=== PATIENT | female | born 1955 | race Caucasian/White ===

== ENCOUNTER 2016-08-13 18:51 | Emergency (ER) | payer BC ==
[~2016-08-13] VITALS: Ht 157.5 cm; Wt 78.0 kg
[2016-08-13] MEDS ORDERED: ONDANSETRON 2 MG/ML (Z0FRAN) 2 ML VIAL IV ONE ×2 (19:25→23:10)
[2016-08-13] MEDS ORDERED: SODIUM CHLORIDE FLUSH 10 ML SYR IV PRN (19:25)
[2016-08-13] MEDS ORDERED: SODIUM CHLORIDE FLUSH 3 ML SYR IV PRN (19:25)
[2016-08-13] MEDS ORDERED: HYDROmorphone 1 MG/ML (DILAUDID) SYRINGE IV PRN (19:25)
[2016-08-13 19:40] LABS: BASOPHILS % (AUTO) 0 % (0-2); EOSINOPHILS # (AUTO) 0.1 10^3uL; EOSINOPHILS % (AUTO) 2 % (0-4); MEAN CORPUSCULAR HEMOGLOBIN 29.7 PG (26.0-34.0); MEAN CORPUSCULAR HGB CONC 35.4 g/dL (31.0-37.0); MEAN CORPUSCULAR VOLUME 84 FL (80-100); MEAN PLATELET VOLUME 8.4 FL (6.0-9.5); MONOCYTES # (AUTO) 0.7 X10^3; MONOCYTES % (AUTO) 9 % (3-11); NEUTROPHILS # (AUTO) 5.1 X10^3; NEUTROPHILS % (AUTO) 64 % (51-67); PLATELET COUNT 333 10^3uL (150-450); WHITE BLOOD COUNT 7.95 10^3uL (4.0-11.0)
[2016-08-13 19:43] LABS: BILIRUBIN,URINE Negative (Negative); CLARITY,URINE Clear; COLOR,URINE Yellow; GLUCOSE, URINE (UA) Negative (Negative); LEUKOCYTE ESTERASE ,URINE Trace (Negative); UROBILINOGEN,URINE 0.2 mg/dL (0.2-1.0)
[2016-08-13 19:48] LABS: ALBUMIN 4.8 g/dL (3.4-5.0); CALCULATED IONIZED CALCIUM 4.1 mg/dL (3.8-4.6); TOTAL PROTEIN 8.2 g/dL (6.4-8.5)
--- NOTE | 2016-08-13 20:40 | NUR ---
Pt states that she feels bloated still but not really any pain at this time
[2016-08-13 21:06] LABS: RBC,URINE 0-2 /HPF; URINE CENTRIFUGED VOLUME 12 mL
[2016-08-13] MEDS ORDERED: ONDANSETRON 2 MG/ML (Z0FRAN) 2 ML VIAL ONE (23:08)
[2016-08-13 23:57] VITALS: BP 152/75
== END 2016-08-14 | disposition home or self-care (01) ==
LOC: ED 18:52
DX: A08.4 Viral intestinal infection, unspecified (principal)
CPT/HCPCS: 36415; 74177; 80053; 81003; 81015; 82150; 83690; 85025; 87088; 96361; 96374; 96375; 96376; 99285; J1170; J2405; J7030; Q9967; 99283

== ENCOUNTER 2016-10-06 07:09 | Emergency (ER) | payer BC ==
[~2016-10-06] VITALS: Ht 157.5 cm; Wt 80.0 kg
[2016-10-06] MEDS ORDERED: KETOROLAC 60 MG/2 ML (TORADOL) VIAL IM ONE (07:40)
[2016-10-06] MEDS ORDERED: PROMETHAZINE 25 MG/ML (PHENERGAN) 1 ML VIAL IM ONE (07:40)
[2016-10-06] MEDS ORDERED: HYDROmorphone 1 MG/ML (DILAUDID) SYRINGE IM ONE (07:40)
[2016-10-06 15:15] VITALS: BP 173/77
== END 2016-10-06 07:58 | disposition home or self-care (01) ==
LOC: ED 07:10
DX: S39.012A Strain of muscle, fascia and tendon of lower back, initial encounter (principal); G89.29 Other chronic pain; M79.1 Myalgia; M48.06 Spinal stenosis, lumbar region; X58.XXXA Exposure to other specified factors, initial encounter; Y93.E1 Activity, personal bathing and showering; Y92.002 Bathroom of unspecified non-institutional (private) residence as the place of occurrence of the external cause
CPT/HCPCS: 96372; 99282; J1170; J1885; J2550; 99283

== ENCOUNTER → 2016-10-28 | Outpatient (CLI) | payer BC ==
[~2016-10-28] MED LIST: ATOR10TA PO; ATOR20TA54 PO; AZIT250T81 PO; CITA10TA4 PO; CITA20TA12 PO; CYCL10TA45 PO; DICL100G13 TOP; DOXY-182 PO; HYDR-3702 PO; HYDR-4131 PO; LANS15CA5 PO; LSNP10T PO; LSRT50T PO; MELO-255 PO; NF-TORA10 PO; RANI150T11 PO; SULF-221 PO; SULF1TAB35 PO; VITA100035 PO
[2016-10-28 13:30] VITALS: BP 132/83
--- NOTE | 2016-10-28 13:30 | Urgent Care T Sheet Gen (E) ---
Intake General Temperature (Fahrenheit): 97.6 Pulse: 86 Blood Pressure Systolic: 132 Blood Pressure Diastolic: 83 Respirations: 18 SPO2: 99 Description of Symptoms Patient presents with sciatica which started last night. Affected the L side. Pain radiates down the posterior leg into the knee. No weakness or numbness. Has a known history of lumbar spinal stenosis for which she takes Mobic daily and Flexeril as needed. Patient states her stenosis is getting worse and she knows she will eventually be sent to a neurosurgeon. Denies any injury to flare up the sciatica. History of Present Illness Allergies: Coded Allergies: No Known Drug Allergies (Unverified , 10/06/16) Home Meds Active Scripts Hydrocodone/Acetaminophen ([place] 5mg/325mg)1 Each Tablet1-2 Tab PO Q6H PRN PAIN #30 TAB Ref 0 Prov:ANH YEPEZ DO 10/06/16 Reported Medications Atorvastatin Calcium 20 Mg Vpinai20 Mg PO DAILY@1700 08/13/16 Ranitidine HCl 150 Mg [id number] Mg PO NEEDED 08/13/16 Lansoprazole 15 Mg Capsule.dr15 Mg PO DAILY 08/13/16 Losartan Potassium 50 Mg Gehttb25 Mg PO DAILY IN AM 05/07/16 Citalopram Hydrobromide (Celexa)20 Mg Ofkrwr10 Mg PO DAILY 09/03/14 Cyclobenzaprine HCl (Flexeril)10 Mg [id number] Mg PO BID PRN SPASMS 04/22/14 Meloxicam 7.5 Mg Ngtazz90 Mg PO DAILY 04/22/14 Respiratory Constitutional Symptoms: No syptoms reported Musculoskeletal: Back pain Skin: No symptoms reported Neurological: No symptoms reported All Other Systems Reviewed Remaining Systems: All other systems reviewed with negative findings Past Dxnyacd-Umgdwf-Akcmvj Hx Patient's Social History Alcohol Use: Past History Smoking Status: Former smoker Recent foreign travel: No Surgeries/Hospitalizations Hospitalization/Surgery Hx: Twisted fallopian tube laparoscopy, Tonsilectomy, skin lesion removed from face. Biopsy R breast Medical History includes: HTN, elevated Cholesterol, Depression, Chronic Low Back problems (since 1999) Respiratory Respiratory History: None Cardiovascular Cardiovascular History: Hypertension Neuro/Muscular Neuro/Muscular History: Seizures, None Comment: With high fevers and once after dental work done Reproductive System Sexually Transmitted Diseases: No Genitouinary Genitourinary History: Hematuria Gastrointestinal GI/Endocrine History: Heartburn, Diarrhea, Other, see comment Comment: fatty liver Diabetes Diabetes: No HEENT Impaired Vision: Glasses Hearing Impaired: None Integumentary Integumentary History: Psoriasis Cancer History of Cancer?: No Psychosocial Behavior Disorders: Anxiety, Stress Blood Transfusions Hx of Blood transfusions: No Physical Exam Physical Exam General Appearance: WD/WN No apparent distress Back Exam: No Muscle spasm, Other (examination of the back reveals: tenderness over the lower lumbar spine and surrounding paraspinal muscles. pain with palpation of the L SI joint. pain with palpation of the L piriformis muscle. pain with stretching of the L piriformis muscle. palpation of the L piriformis muscle causes radiating pain.) Extremity Exam: Full range of motion (pain in L hip with internal rotation.) Tenderness (with palpation of the L greater trochanter) Neurologic/Psychiatric Exam: No motor deficits No sensory deficits Departure Urgent Care Impression Impression: Primary Impression: Sciatica, left side Departure Disposition: 01 HOME OR SELF-CARE Condition: Stable Referrals: FIDEL MARTINEZ MD (PCP) Additional Instructions: Since the patient already takes Mobic daily and takes Flexeril as needed, I didn 't feel comfortable prescribing an oral med. I did however prescribe Voltaren gel which she may apply to the affected areas QID prn. Suggested she rest and massage the area as able. F/U with PCP. If her flare ups continue to progress, may need referral to neurosurgeon such as Dr Nicholson or Dr Kruse. Patient understands DC instructions. All questions were answered. Scripts Diclofenac Sodium (Voltaren 1% Gel)100 Gm Gel2 Gm TOP QID PRN PAIN #1 TUBE Apply topically to affected area QID prn pain. Prov:ELADIO RINCON 10/28/16 End of report . ELADIO RINCON Oct 28, 2016 13:30
== END ==
LOC: MHUC 13:08
PROVIDERS: ATTEND Physician Assistant
DX: M54.32 Sciatica, left side (principal)
CPT/HCPCS: 99213